=== PATIENT | female | born 1985 | race Caucasian/White ===

== ENCOUNTER 2017-09-02 10:15 | Emergency (ER) | payer OTHER, MEDICAID ==
[~2017-09-02] VITALS: Ht 162.6 cm; Wt 72.6 kg
[~2017-09-02 10:15] MED LIST: ACETAMINOPHEN-1 EAC1 PO; AMOXICILLIN500 M1 PO; ANAPROX DS550 MG PO; BACTRIM DS TAB1 EACH PO; CELEXA20 MG PO; CIPRO500 MG PO; CLONAZEPAM 0.50.5 M1; EFFEXOR XR; FIORICET 50-321 EACH; FLAGYL500 MG PO; FLEXERIL PO; HYDROCODON-ACE1 EACH PO; HYDROCODONE-AP1 EAC6 PO; IBUPROFEN 600600 M1 PO; IBUPROFEN 800800 M1 PO; IBUPROFEN 800800 MG PO; KARIVA 28 DAY1 EACH PO; LORTAB 5 MG/5001 TA1 PO; LORTABELXR PO; MACROBID 100 M100 M1 PO; MIRALAX255 GM PO; NAPROSYN500 M1 PO; NAPROSYN500 MG PO; NAPROXEN 500MG500 MG PO; NECON1 EAC4; NORCO 5-325 TA1 EACH PO; NORETHINDRONE0.35 MG; NORFLEX100 MG PO; PENICILLIN V P500 MG PO; PENICILLIN VK500 M1 PO; PHENERGAN 25 MG25 MG PO; PHENERGAN25 M2 RECTAL; PREDNISONE 20 M20 M1 PO; PROZAC20 MG PO; ROBAXIN 750 MG750 MG PO; RONDEC-DM SYRU120 ML PO; TESSALON200 MG PO; VICODIN 5-5001 EACH PO; ZPAK PO
[2017-09-02 11:08] LABS: URINE BILIRUBIN NEGATIVE (Negative); URINE BLOOD TRACE (Negative); URINE CLARITY SL CLOUDY; URINE COLOR YELLOW; URINE GLUCOSE-RANDOM NEGATIVE (Negative); URINE KETONES NEGATIVE (Negative); URINE LEUKOCYTES-REFLEX NEGATIVE (Negative); URINE NITRITE-REFLEX NEGATIVE (Negative); URINE PROTEIN NEGATIVE (Negative); URINE SPECIFIC GRAVITY 1.025 (1.005-1.030); URINE UROBILINOGEN 0.2 E.U./dl (0.2-1.0)
[2017-09-02 11:13] LABS: CASTS None Seen /LPF (None Seen); CRYSTALS None Seen /LPF (None Seen); MUCUS 0-3 Light strn/LPF (None Seen); SQUAMOUS >10 Many /LPF (0-3)
[2017-09-02 11:14] LABS: URINE RBC 0-2 Rare /HPF (0-2); URINE WBC-REFLEX 0-5 Rare /HPF (0-5)
[2017-09-02 11:15] LABS: BACTERIA-REFLEX >30 Many /HPF (None Seen)
[2017-09-02] MEDS ORDERED: PREDNISONE 10 M10 MG PO (11:22)
[2017-09-02] MEDS ORDERED: PHENAZOPYRIDIN200 M2 PO (11:22)
[2017-09-02] MEDS ORDERED: CIPRO500 MG PO (11:22)
[2017-09-02] MEDS ORDERED: CYCLOBENZAPRINE5 MG PO (11:22)
[2017-09-02 11:30] VITALS: BP 122/79
== END 2017-09-02 11:30 | disposition home or self-care (01) ==
LOC: M.ERS 10:15
PROVIDERS: Physician Assistant
DX: M54.41 Lumbago with sciatica, right side (principal); N30.00 Acute cystitis without hematuria; F17.210 Nicotine dependence, cigarettes, uncomplicated; Z88.5 Allergy status to narcotic agent; Z90.711 Acquired absence of uterus with remaining cervical stump; Z86.14 Personal history of Methicillin resistant Staphylococcus aureus infection; Z90.721 Acquired absence of ovaries, unilateral

== ENCOUNTER 2018-05-02 19:15 | Emergency (ER) | payer OTHER, MEDICAID ==
[~2018-05-02] VITALS: Ht 162.6 cm; Wt 64.4 kg
[~2018-05-02 19:15] MED LIST changes: +CYCLOBENZAPRINE5 MG PO; +PHENAZOPYRIDIN200 M2 PO; +PREDNISONE 10 M10 MG PO
[2018-05-02] MEDS ORDERED: HYDROCODON-ACE1 EAC7 PO (20:19)
[2018-05-02 20:44] VITALS: BP 117/46
== END 2018-05-02 20:45 | disposition home or self-care (01) ==
LOC: M.ERS 19:15
DX: M54.5 Low back pain (principal); Z90.710 Acquired absence of both cervix and uterus; Z90.721 Acquired absence of ovaries, unilateral; F17.210 Nicotine dependence, cigarettes, uncomplicated; Z88.8 Allergy status to other drugs, medicaments and biological substances

== ENCOUNTER 2018-08-07 08:40 | Emergency (ER) | payer OTHER, MEDICAID ==
[~2018-08-07] VITALS: Ht 162.6 cm; Wt 64.4 kg
[~2018-08-07 08:40] MED LIST changes: +HYDROCODON-ACE1 EAC7 PO
[2018-08-07 09:08] LABS: URINE BILIRUBIN NEGATIVE (Negative); URINE BLOOD 1+ (Negative); URINE CLARITY CLOUDY; URINE COLOR YELLOW; URINE GLUCOSE-RANDOM NEGATIVE (Negative); URINE KETONES NEGATIVE (Negative); URINE LEUKOCYTES-REFLEX NEGATIVE (Negative); URINE NITRITE-REFLEX NEGATIVE (Negative); URINE PROTEIN NEGATIVE (Negative); URINE SPECIFIC GRAVITY 1.025 (1.005-1.030); URINE UROBILINOGEN 0.2 E.U./dl (0.2-1.0)
[2018-08-07 09:11] LABS: ABSOLUTE EOSINOPHILS 0.1 thou/uL (0.0-0.7); ABSOLUTE LYMPHOCYTES 1.6 thou/uL (0.8-5.3); ABSOLUTE MONOCYTES 0.4 thou/uL (0.0-1.2); ABSOLUTE NEUTROPHILS 4.5 thou/uL (1.6-8.1); BASOPHILS 0.7 %; EOSINOPHILS 0.9 %; HEMATOCRIT 38.8 % (37.0-47.0); HEMOGLOBIN 13.5 gm/dL (12.0-15.0); LYMPHOCYTES 24.7 %; MCH 32.8 pg (26.0-34.0); MCHC 34.8 g/dL (28.0-37.0); MCV 94.4 fL (80.0-100.0); MONOCYTES 5.4 %; MPV 8.5 fl. (7.2-11.1); NUCLEATED RBCS 0 /100WBC; PLATELET COUNT* 270 thou/uL (150-400); POLYS 68.3 %; RBC 4.11 mil/uL (4.20-5.00); RDW-CV 12.2 % (10.5-14.5); WBC 6.6 thou/uL (4.0-11.0)
[2018-08-07 09:13] LABS: CRYSTALS None Seen /LPF (None Seen); SQUAMOUS >10 Many /LPF (0-3)
[2018-08-07 09:14] LABS: CASTS None Seen /LPF (None Seen)
[2018-08-07 09:15] LABS: BACTERIA-REFLEX >30 Many /HPF (None Seen); URINE RBC None Seen /HPF (0-2); URINE WBC-REFLEX 0-5 Rare /HPF (0-5)
[2018-08-07 09:16] LABS: CALCIUM 8.6 mg/dL (8.5-10.1); CREATININE 0.8 mg/dL (0.6-1.3); POTASSIUM 4.2 mmol/L (3.5-5.1)
[2018-08-07 09:20] LABS: ALBUMIN 3.6 g/dL (3.4-5.0); TOTAL BILIRUBIN 0.7 mg/dL (<0.1-1.0); TOTAL PROTEIN 7.1 g/dL (6.4-8.2)
[2018-08-07 09:21] LABS: AMP/METHAMP Negative (Negative); BARBITURATES Negative (Negative); BENZODIAZEPINES Negative (Negative); COCAINE Negative (Negative); METHADONE Negative (Negative); OPIATES POSITIVE (Negative); PCP Negative (Negative); THC Negative (Negative)
[2018-08-07] MEDS ORDERED: KEFLEX500 M1 PO (11:39)
[2018-08-07] MEDS ORDERED: ACETAMINOPHEN-1 EAC1 PO (11:39)
[2018-08-07] MEDS ORDERED: TORADOL 10 MG T10 MG PO (11:39)
[2018-08-07 11:48] VITALS: BP 108/56
== END 2018-08-07 11:48 | disposition home or self-care (01) ==
LOC: M.ERS 08:40
PROVIDERS: Personal Emergency Response Attendant
DX: N39.0 Urinary tract infection, site not specified (principal); R11.2 Nausea with vomiting, unspecified; Z90.710 Acquired absence of both cervix and uterus; Z90.721 Acquired absence of ovaries, unilateral; Z86.14 Personal history of Methicillin resistant Staphylococcus aureus infection; F17.210 Nicotine dependence, cigarettes, uncomplicated; Z88.8 Allergy status to other drugs, medicaments and biological substances

== ENCOUNTER 2019-01-21 11:14 | Emergency (ER) | payer OTHER, MEDICAID ==
[~2019-01-21] VITALS: Ht 162.6 cm; Wt 65.8 kg
[~2019-01-21 11:14] MED LIST changes: +KEFLEX500 M1 PO; +TORADOL 10 MG T10 MG PO
[2019-01-21 11:47] LABS: URINE BILIRUBIN NEGATIVE (Negative); URINE BLOOD TRACE (Negative); URINE CLARITY CLEAR; URINE COLOR YELLOW; URINE GLUCOSE-RANDOM NEGATIVE (Negative); URINE KETONES NEGATIVE (Negative); URINE LEUKOCYTES-REFLEX NEGATIVE (Negative); URINE NITRITE-REFLEX NEGATIVE (Negative); URINE PROTEIN NEGATIVE (Negative); URINE UROBILINOGEN 0.2 E.U./dl (0.2-1.0)
[2019-01-21 11:58] LABS: ABSOLUTE LYMPHOCYTES 1.5 thou/uL (0.8-5.3); HEMATOCRIT 39.9 % (37.0-47.0); MONOCYTES 5.3 %; MPV 8.4 fl. (7.2-11.1)
[2019-01-21 12:00] LABS: ABSOLUTE MONOCYTES 0.3 thou/uL (0.0-1.2); ABSOLUTE NEUTROPHILS 4.7 thou/uL (1.6-8.1); BASOPHILS 0.5 %; EOSINOPHILS 0.7 %; HEMOGLOBIN 13.5 gm/dL (12.0-15.0); LYMPHOCYTES 22.3 %; MCH 31.7 pg (26.0-34.0); MCHC 33.9 g/dL (28.0-37.0); MCV 93.5 fL (80.0-100.0); NUCLEATED RBCS 0 /100WBC; PLATELET COUNT* 275 thou/uL (150-400); POLYS 71.2 %; RBC 4.27 mil/uL (4.20-5.00); WBC 6.6 thou/uL (4.0-11.0)
[2019-01-21 12:07] LABS: CALCIUM 8.7 mg/dL (8.5-10.1); CREATININE 0.8 mg/dL (0.6-1.3); POTASSIUM 3.9 mmol/L (3.5-5.1)
[2019-01-21 12:12] LABS: ALBUMIN 3.9 g/dL (3.4-5.0); TOTAL BILIRUBIN 0.7 mg/dL (<0.1-1.0); TOTAL PROTEIN 7.4 g/dL (6.4-8.2)
[2019-01-21] MEDS ORDERED: NABUMETONE 750750 M1 PO (14:08)
[2019-01-21] MEDS ORDERED: MIRALAX17 GM PO (14:08)
[2019-01-21 14:24] VITALS: BP 115/70
== END 2019-01-21 14:25 | disposition home or self-care (01) ==
LOC: M.ERS 11:14
PROVIDERS: Nurse Practitioner Family
DX: N83.202 Unspecified ovarian cyst, left side (principal); K59.00 Constipation, unspecified; F17.210 Nicotine dependence, cigarettes, uncomplicated; Z88.6 Allergy status to analgesic agent; Z90.711 Acquired absence of uterus with remaining cervical stump; Z90.11 Acquired absence of right breast and nipple

== ENCOUNTER 2019-03-16 08:37 | Emergency (ER) | payer OTHER, MEDICAID ==
[~2019-03-16] VITALS: Ht 162.6 cm; Wt 69.4 kg
[~2019-03-16 08:37] MED LIST changes: +MIRALAX17 GM PO; +NABUMETONE 750750 M1 PO
[2019-03-16 08:50] VITALS: BP 132/69
[2019-03-16] MEDS ORDERED: HYDROCODON-ACE1 EAC7 PO (09:03)
[2019-03-16] MEDS ORDERED: IBUPROFEN 800800 MG PO (09:03)
== END 2019-03-16 09:23 | disposition home or self-care (01) ==
LOC: M.ERS 08:37
DX: M54.31 Sciatica, right side (principal); M25.551 Pain in right hip; M54.9 Dorsalgia, unspecified; F17.210 Nicotine dependence, cigarettes, uncomplicated; F15.10 Other stimulant abuse, uncomplicated; Z98.51 Tubal ligation status; Z90.721 Acquired absence of ovaries, unilateral; Z90.711 Acquired absence of uterus with remaining cervical stump; Z86.14 Personal history of Methicillin resistant Staphylococcus aureus infection; Z88.5 Allergy status to narcotic agent; W01.0XXA Fall on same level from slipping, tripping and stumbling without subsequent striking against object, initial encounter; Y93.89 Activity, other specified; Y92.89 Other specified places as the place of occurrence of the external cause; Y99.8 Other external cause status

== ENCOUNTER 2019-06-14 09:05 | Emergency (ER) | payer OTHER, MEDICAID ==
[~2019-06-14] VITALS: Ht 162.6 cm; Wt 65.8 kg
[2019-06-14 09:15] VITALS: BP 105/58
[2019-06-14] MEDS ORDERED: FLEXERIL PO (09:34)
[2019-06-14] MEDS ORDERED: ULTRAM 50MG TAB50 MG PO (09:34)
== END 2019-06-14 09:41 | disposition home or self-care (01) ==
LOC: M.ERS 09:05
DX: S39.012A Strain of muscle, fascia and tendon of lower back, initial encounter (principal); F17.210 Nicotine dependence, cigarettes, uncomplicated; Z98.51 Tubal ligation status; Z90.711 Acquired absence of uterus with remaining cervical stump; Z86.14 Personal history of Methicillin resistant Staphylococcus aureus infection; Z90.721 Acquired absence of ovaries, unilateral; Z88.6 Allergy status to analgesic agent; Z88.8 Allergy status to other drugs, medicaments and biological substances; W18.39XA Other fall on same level, initial encounter; Y93.89 Activity, other specified; Y92.89 Other specified places as the place of occurrence of the external cause; Y99.8 Other external cause status

== ENCOUNTER 2019-06-28 08:39 | Emergency (ER) | payer OTHER, MEDICAID ==
[~2019-06-28] VITALS: Ht 162.6 cm; Wt 65.8 kg
[~2019-06-28 08:39] MED LIST changes: +ULTRAM 50MG TAB50 MG PO
[2019-06-28 08:58] LABS: URINE BILIRUBIN NEGATIVE (Negative); URINE BLOOD 1+ (Negative); URINE CLARITY CLOUDY; URINE COLOR YELLOW; URINE GLUCOSE-RANDOM NEGATIVE (Negative); URINE KETONES NEGATIVE (Negative); URINE LEUKOCYTES-REFLEX NEGATIVE (Negative); URINE NITRITE-REFLEX NEGATIVE (Negative); URINE PROTEIN NEGATIVE (Negative); URINE SPECIFIC GRAVITY 1.025 (1.005-1.030); URINE UROBILINOGEN 0.2 E.U./dl (0.2-1.0)
[2019-06-28 09:25] LABS: MUCUS 4-6 Moderate strn/LPF (None Seen); SQUAMOUS >10 Many /LPF (0-3)
[2019-06-28 09:28] LABS: BACTERIA-REFLEX >30 Many /HPF (None Seen); CASTS None Seen /LPF (None Seen); CRYSTALS None Seen /LPF (None Seen); URINE RBC 0-2 Rare /HPF (0-2); URINE WBC-REFLEX 0-5 Rare /HPF (0-5)
[2019-06-28] MEDS ORDERED: BACTRIM DS TAB1 EACH PO (09:43)
[2019-06-28] MEDS ORDERED: TRAMADOL 50 MG50 MG PO (09:43)
[2019-06-28 10:07] VITALS: BP 117/40
== END 2019-06-28 10:07 | disposition home or self-care (01) ==
LOC: M.ERS 08:39
PROVIDERS: Emergency Medicine
DX: N39.0 Urinary tract infection, site not specified (principal); M54.9 Dorsalgia, unspecified; F15.10 Other stimulant abuse, uncomplicated; F17.210 Nicotine dependence, cigarettes, uncomplicated; Z90.721 Acquired absence of ovaries, unilateral; Z86.14 Personal history of Methicillin resistant Staphylococcus aureus infection; Z98.51 Tubal ligation status; Z90.710 Acquired absence of both cervix and uterus

== ENCOUNTER 2019-09-04 17:20 | Emergency (ER) | payer OTHER, MEDICAID ==
[~2019-09-04] VITALS: Ht 162.6 cm; Wt 65.8 kg
[~2019-09-04 17:20] MED LIST changes: +TRAMADOL 50 MG50 MG PO
[2019-09-04] MEDS ORDERED: NAPROSYN500 MG PO (18:21)
[2019-09-04] MEDS ORDERED: MEDROLDOSEPACK PO (18:21)
[2019-09-04] MEDS ORDERED: NORCO 5-325 TA1 EAC1 PO (18:21)
[2019-09-04 19:35] VITALS: BP 126/49
== END 2019-09-04 19:36 | disposition home or self-care (01) ==
LOC: M.ERS 17:20
DX: M65.4 Radial styloid tenosynovitis [de Quervain] (principal); M77.8 Other enthesopathies, not elsewhere classified; F17.210 Nicotine dependence, cigarettes, uncomplicated; Z90.711 Acquired absence of uterus with remaining cervical stump; Z90.721 Acquired absence of ovaries, unilateral; Z86.14 Personal history of Methicillin resistant Staphylococcus aureus infection

== ENCOUNTER 2019-11-24 10:38 | Emergency (ER) | payer OTHER, MEDICAID ==
[~2019-11-24] VITALS: Ht 162.6 cm; Wt 65.8 kg
[~2019-11-24 10:38] MED LIST changes: +MEDROLDOSEPACK PO; +NORCO 5-325 TA1 EAC1 PO
[2019-11-24 10:46] VITALS: BP 128/77
[2019-11-24] MEDS ORDERED: CELEXA 10 MG TA10 M1 PO (10:49)
[2019-11-24] MEDS ORDERED: TRAMADOL 50 MG50 MG PO (10:50)
[2019-11-24] MEDS ORDERED: NORCO 5-325 TA1 EAC1 PO (11:02)
[2019-11-24] MEDS ORDERED: CIPRODEX OTIC7.5 ML OTIC (11:02)
[2019-11-24] MEDS ORDERED: NAPROSYN500 MG PO ×2 (11:02→11:04)
== END 2019-11-24 11:09 | disposition home or self-care (01) ==
LOC: M.ERS 10:38
DX: H72.92 Unspecified perforation of tympanic membrane, left ear (principal); F17.210 Nicotine dependence, cigarettes, uncomplicated; Z98.51 Tubal ligation status; Z90.711 Acquired absence of uterus with remaining cervical stump; Z86.14 Personal history of Methicillin resistant Staphylococcus aureus infection; Z90.721 Acquired absence of ovaries, unilateral

== ENCOUNTER 2019-12-23 08:37 | Emergency (ER) | payer OTHER, MEDICAID ==
[~2019-12-23] VITALS: Ht 162.6 cm; Wt 68.0 kg
[~2019-12-23 08:37] MED LIST changes: +CELEXA 10 MG TA10 M1 PO; +CIPRODEX OTIC7.5 ML OTIC
[2019-12-23] MEDS ORDERED: TYLENOL WITH CO1 TA1 PO (09:28)
[2019-12-23] MEDS ORDERED: TORADOL 10 MG T10 MG PO (09:28)
[2019-12-23 09:37] LABS: URINE BILIRUBIN NEGATIVE (Negative); URINE BLOOD 1+ (Negative); URINE CLARITY CLEAR; URINE COLOR YELLOW; URINE GLUCOSE-RANDOM NEGATIVE (Negative); URINE KETONES NEGATIVE (Negative); URINE LEUKOCYTES-REFLEX NEGATIVE (Negative); URINE NITRITE-REFLEX NEGATIVE (Negative); URINE PROTEIN NEGATIVE (Negative); URINE SPECIFIC GRAVITY >= 1.030 (1.005-1.030); URINE UROBILINOGEN 0.2 E.U./dl (0.2-1.0)
[2019-12-23 09:43] LABS: AMP/METHAMP Negative (Negative); BARBITURATES Negative (Negative); BENZODIAZEPINES Negative (Negative); COCAINE Negative (Negative); METHADONE Negative (Negative); OPIATES POSITIVE (Negative); PCP Negative (Negative); THC POSITIVE (Negative)
[2019-12-23 09:45] LABS: SQUAMOUS 4-10 Moderate /LPF (0-3); URINE WBC-REFLEX None Seen /HPF (0-5)
[2019-12-23 09:46] LABS: CASTS None Seen /LPF (None Seen); CRYSTALS None Seen /LPF (None Seen); MUCUS 0-3 Light strn/LPF (None Seen); URINE RBC 0-2 Rare /HPF (0-2)
[2019-12-23 11:05] VITALS: BP 148/78
== END 2019-12-23 11:06 | disposition home or self-care (01) ==
LOC: M.ERS 08:37
PROVIDERS: Personal Emergency Response Attendant
DX: S30.0XXA Contusion of lower back and pelvis, initial encounter (principal); F17.210 Nicotine dependence, cigarettes, uncomplicated; Z98.51 Tubal ligation status; Z90.711 Acquired absence of uterus with remaining cervical stump; Z86.14 Personal history of Methicillin resistant Staphylococcus aureus infection; Z90.721 Acquired absence of ovaries, unilateral; Z79.899 Other long term (current) drug therapy; W01.0XXA Fall on same level from slipping, tripping and stumbling without subsequent striking against object, initial encounter; Y93.89 Activity, other specified; Y92.89 Other specified places as the place of occurrence of the external cause; Y99.8 Other external cause status

== ENCOUNTER 2020-05-26 12:10 | Emergency (ER) | payer OTHER, MEDICAID ==
[~2020-05-26] VITALS: Ht 162.6 cm; Wt 72.6 kg
[~2020-05-26 12:10] MED LIST changes: +TYLENOL WITH CO1 TA1 PO
[2020-05-26] MEDS ORDERED: NEURONTIN 300M300 M2 PO (12:19)
[2020-05-26] MEDS ORDERED: TRAMADOL 50 MG50 MG PO (13:08)
[2020-05-26] MEDS ORDERED: NAPROSYN500 MG PO (13:08)
[2020-05-26] MEDS ORDERED: AMOXICILLIN 50500 MG PO (13:08)
[2020-05-26 13:14] VITALS: BP 113/49
== END 2020-05-26 13:15 | disposition home or self-care (01) ==
LOC: M.ERS 12:10
DX: K02.9 Dental caries, unspecified (principal); K00.7 Teething syndrome; F17.210 Nicotine dependence, cigarettes, uncomplicated; Z98.51 Tubal ligation status; Z90.711 Acquired absence of uterus with remaining cervical stump; Z86.14 Personal history of Methicillin resistant Staphylococcus aureus infection; Z90.721 Acquired absence of ovaries, unilateral

== ENCOUNTER 2020-12-31 12:23 | Emergency (ER) | payer OTHER, MEDICAID ==
[~2020-12-31] VITALS: Ht 170.2 cm; Wt 69.8 kg
[~2020-12-31 12:23] MED LIST changes: +AMOXICILLIN 50500 MG PO; +NEURONTIN 300M300 M2 PO
[2020-12-31] MEDS ORDERED: PREDNISONE 20 M20 MG PO (14:47)
[2020-12-31] MEDS ORDERED: FLEXERIL PO (14:47)
[2020-12-31] MEDS ORDERED: NAPROSYN500 MG PO (14:47)
[2020-12-31 15:15] VITALS: BP 122/54
== END 2020-12-31 15:16 | disposition home or self-care (01) ==
LOC: M.ERS 12:23
DX: S16.1XXA Strain of muscle, fascia and tendon at neck level, initial encounter (principal); S09.8XXA Other specified injuries of head, initial encounter; M54.5 Low back pain; F17.210 Nicotine dependence, cigarettes, uncomplicated; Z86.14 Personal history of Methicillin resistant Staphylococcus aureus infection; Z98.51 Tubal ligation status; Z90.711 Acquired absence of uterus with remaining cervical stump; Z90.721 Acquired absence of ovaries, unilateral; W22.8XXA Striking against or struck by other objects, initial encounter; Y93.89 Activity, other specified; Y92.89 Other specified places as the place of occurrence of the external cause; Y99.8 Other external cause status

== ENCOUNTER 2021-02-09 17:01 | Emergency (ER) | payer OTHER, MEDICAID ==
[~2021-02-09] VITALS: Ht 162.6 cm; Wt 65.8 kg
[~2021-02-09 17:01] MED LIST changes: +PREDNISONE 20 M20 MG PO
[2021-02-09] MEDS ORDERED: MOBIC7.5 M1 PO (17:35)
[2021-02-09] MEDS ORDERED: ZANAFLEX4 M1 PO (17:36)
[2021-02-09 17:37] VITALS: BP 120/72
== END 2021-02-09 17:38 | disposition left against medical advice (07) ==
LOC: M.ERS 17:01
DX: Z53.21 Procedure and treatment not carried out due to patient leaving prior to being seen by health care provider (principal)